=== PATIENT | male | born 1960 | race Caucasian/White ===

== ENCOUNTER 2016-11-18 07:52 | Day surgery (SDC) | payer OTHER ==
[~2016-11-18] VITALS: Ht 172.7 cm; Wt 72.6 kg
[~2016-11-18 07:52] MED LIST: 0.9% Sodium Chloride 1,000 ML IV SCH; AMOX875T2 PO; NOMED; Sodium Chloride LOK Flush 10 mL Syringe IV PRN; TADA5TAB2 PO; fentaNYL-PF 50 mCg/mL 2 mL Inj IVPUSH PRN
[2016-11-18 08:19] VITALS: BP 112/76; PULSE 69; RESP 14; O2SAT 96
[2016-11-18 08:55] VITALS: BP 101/69; PULSE 73; RESP 14; O2SAT 98
[2016-11-18 09:05] VITALS: BP 101/62; PULSE 66; RESP 16; O2SAT 98
[2016-11-18 09:11] VITALS: BP 108/74; PULSE 70; RESP 16; O2SAT 99
--- NOTE | 2016-11-18 09:28 | ENDO ---
[address] [address] ENDOSCOPY PROCEDURE PATIENT: MATHIEU POSEY : 1960 MR#: [id number] ADMIT: 11/18/2016 JOB ID: [id number] DATE OF SERVICE: 11/18/2016 PROCEDURE PERFORMED: Colonoscopy. INDICATIONS: Screening. ASA CLASSIFICATION: The patient's ASA classification is II. MALLAMPATI SCORE: Mallampati score was 2. INSTRUMENT USED: [id number]. PREPARATION QUALITY: Fair. PROCEDURE DETAILS: After informed consent was obtained, the patient was brought into the GI suite, where he was placed on oxygen via nasal cannula and monitored with continuous pulse oximeter, telemetry, and blood pressure monitoring. A time-out was performed. Then, he was placed in the left lateral decubitus position and medications were administered for sedation. Digital rectal exam was performed which was unremarkable. The colonoscope was then inserted into the rectum and advanced under direct visualization to the cecum, which was identified by the presence of the ileocecal valve and appendiceal orifice. Once the cecum was reached, the colonoscope was withdrawn back into the rectum, as the mucosa and lumen were examined. In the rectum, retroflexion was performed. Following retroflexion, remaining air in the rectum was suctioned, and procedure was completed. FINDINGS: 1. In the cecum there was a diminutive polyp that was removed with cold biopsy forceps. 2. In the ascending colon, there was an approximately 4 mm sessile polyp that was removed with a cold snare. 3. Additionally, there was an approximately 7 mm sessile polyp that was removed with a hot snare. 4. In the transverse colon there was a diminutive polyp that was removed with cold biopsy forceps. 5. There were two other polyps in the transverse colon that measured approximately 6 mm and 7 mm which were both removed with a hot snare. 6. In the descending colon, there were two polyps. The larger polyp measured approximately 6 mm and was removed with a hot snare. The smaller polyp was diminutive and was removed with cold biopsy forceps. At the larger polypectomy site there was oozing of blood following removal and therefore, one hemoclip was placed successfully. 7. In the sigmoid colon there was an approximately 6 mm sessile polyp that was removed with a hot snare. 8. In the rectum there was a diminutive polyp that was removed with a cold snare. IMPRESSION: 1. Cecal polyp. 2. Two ascending colon polyps. 3. Three transverse colon polyps. 4. Two descending colon polyps. 5. One sigmoid polyp. 6. One rectal polyp. RECOMMENDATIONS: 1. Avoid NSAIDs and anticoagulants for 72 hours. 2. Repeat colonoscopy in three years. COMPLICATIONS: None. ESTIMATED BLOOD LOSS: Less than 5 mL.
--- NOTE | 2016-11-19 10:23 | PATH ---
SURGICAL PATHOLOGY Attending Physician:Beatris Sarabia CASE STATUS: Signed Out PATIENT NAME: MATHIEU POSEY JR PID: [id number] : 1960 DATE COLLECTED:11/18/2016 15:59 SPECIMEN: 1: Colon, Biopsy 2: Colon, Biopsy 3: Colon, Biopsy 4: Colon, Biopsy 5: Rectum, Biopsy CLINICAL HISTORY: 1): TRANSVERSE COLON POLYPS X3 2): CECAL POLYP X1 3): ASCENDING COLON POLYPS X2 4): DESCENDING COLON POLYPS X2 And SIGMOID COLON POLYP X1 5). RECTUM POLYP X1 FINAL DIAGNOSIS: A. Transverse Colon Polyps: Tubular adenomas (3). B. Cecal Polyp: Tubular adenoma. C. Ascending Colon Polyps: Tubular adenomas (2). D. Descending Colon Polyps and Sigmoid Colon Polyp: Tubular adenomas (3) E. Rectum, Polyp: Tubular adenoma. ICD10: D12.6 GROSS DESCRIPTION: The specimen is received in five formalin filled containers labeled with the patient's name. 1). The specimen is sublabeled "transverse colon polyps" and consists of 3 portions of tissue which aggregate to 0.3 x 0.3 x 0.3 CM. Specimen is entirely submitted in cassette 1A. 2). The specimen is sublabeled "cecal polyp" and consists of a 0.5 x 0.3 x 0.2 CM portion of tissue which is entirely submitted in cassette 2A. 3). The specimen is sublabeled "ascending colon polyps" and consists of multiple portions of tissue which aggregate to 0.5 x 0.5 x 0.4 CM. The specimen is entirely submitted in cassette 3A. 4). The specimen is sublabeled "descending colon polyp" and consists of 3 portions of tissue which aggregate to 0.6 x 0.6 x 0.5 CM. The specimen is entirely submitted in cassette 4A. (The specimen is sublabeled "sigmoid colon polyp" was inadvertently placed in Jar #4)(Spoke to Lexus in ENDO, after looking at Endoscopy notes and comparing to gross notes, it appears that Jar#4 received the Sigmoid Colon Polyp by mistake.) 5). The specimen is sublabeled "rectum polyp" and consists of a 0.4 x 0.4 x 0.3 CM portion of tissue which is entirely submitted in cassette 6A. 11/18/2016 [facility] ICD-9 CODES: CPT CODES: 1: 37961 2: 86776 3: 99172 4: 36339 5: 82318 Electronically Signed Out Justino Sloan MD [facility] [address], [place] [address] Technical component performed at [facility], [address], [place], [address]
== END 2016-11-18 23:59 | disposition home or self-care (01) ==
LOC: END 07:52
PROVIDERS: ATTEND Internal Medicine Gastroenterology
DX: Z12.11 Encounter for screening for malignant neoplasm of colon (principal); D12.0 Benign neoplasm of cecum; D12.2 Benign neoplasm of ascending colon; D12.3 Benign neoplasm of transverse colon; D12.4 Benign neoplasm of descending colon; D12.8 Benign neoplasm of rectum; M35.3 Polymyalgia rheumatica
CPT/HCPCS: 45380; 45385; 99153; G0500; J2250; J3010; J7030